=== PATIENT | male | born 1965 | race Hispanic/Latino ===

== ENCOUNTER 2022-05-07 09:31 | Emergency (ER) | payer BC, OTHER ==
[2022-05-07] MEDS ORDERED: Morphine 4 MG/ML VIAL ONE (09:59)
== END 2022-05-07 10:24 | disposition home or self-care (01) ==
LOC: MADERS 09:31
DX: S67.192A Crushing injury of right middle finger, initial encounter (principal); S62.612A Displaced fracture of proximal phalanx of right middle finger, initial encounter for closed fracture; I10 Essential (primary) hypertension; E11.9 Type 2 diabetes mellitus without complications; E78.00 Pure hypercholesterolemia, unspecified; W31.89XA Contact with other specified machinery, initial encounter; Z79.4 Long term (current) use of insulin; Z79.84 Long term (current) use of oral hypoglycemic drugs; Z79.899 Other long term (current) drug therapy
CPT/HCPCS: 96372; J2270